=== PATIENT | female | born 1980 | race Caucasian/White ===

== ENCOUNTER 2019-01-06 18:32 | Emergency (ER) | payer BC, OTHER ==
[2019-01-06 19:30] VITALS: BP 116/74
[2019-01-06] MEDS ORDERED: Albuterol/Ipratropium NEB.SOL* Albuterol 2.5 MG/Ipratropium 0.5 MG 3 ML INH ONE (19:46)
--- NOTE | 2019-01-06 19:47 | UC ---
Respiratory Complaint HPI - HPI Summary HPI Summary: Patient has had cold symptoms for the past 2 weeks. She recently traveled to and from [facility]. She states she was sick before she went to [facility]. She has no history of asthma. She thinks she has had some fever. She also states that her right ear feels very plugged and congested. - History of Current Complaint Chief Complaint: UCGeneralIllness Stated Complaint: COUGH/CONGESTION/RT EAR PAIN Time Seen by Provider: 01/06/19 19:42 Hx Obtained From: Patient Hx Last Menstrual Period: 12/20/18 ?: No Onset/Duration: Gradual Onset Timing: Constant Severity Initially: Moderate Severity Currently: Moderate Pain Intensity: 4 Character: Cough: Productive Aggravating Factors: Deep Breaths Alleviating Factors: Nothing Associated Signs And Symptoms: Positive: URI, Nasal Congestion - Ill for 2 weeks , patient just returned from [facility] - Allergies/Home Medications Allergies/Adverse Reactions: Allergies Allergy/AdvReac Type Severity Reaction Status Date / Time No Known Allergies Allergy Verified 01/06/19 19:19 Home Medications: Home Medications Albuterol HFA INHALER* [Ventolin HFA Inhaler*] 1 puff INH Q6H PRN 01/06/19 [ History Confirmed 01/06/19] Budesonide/Formote 160/4.5(NF) [Symbicort 160/4.5 (NF)] 1 puff INH DAILY [History Confirmed 01/06/19] Cetirizine* [ZyrTEC 10 MG TAB*] 10 mg PO DAILY 01/06/19 [History Confirmed 01/06] Ibuprofen TAB* [Advil TAB*] 400 mg PO Q6H PRN 01/06/19 [History Confirmed ] PMH/Surg Hx/FS Hx/Imm Hx Previously Healthy: Yes - Surgical History Surgical History: Yes Surgery Procedure, Year, and Place: --2018 - Social History Alcohol Use: None Substance Use Type: None Smoking Status (MU): Never Smoked Tobacco Review of Systems All Other Systems Reviewed And Are Negative: Yes Constitutional: Positive: Fever, Chills Skin: Positive: Rash - Patient had an itchy rash last week which resolved spontaneously. ENT: Positive: Ear Ache - Date ear pain and feeling of being plugged., Nasal Discharge, Sinus Congestion Respiratory: Positive: Cough - Tight, productive cough. Cardiovascular: Positive: Negative Gastrointestinal: Positive: Negative Genitourinary: Positive: Negative Motor: Positive: Negative Neurovascular: Positive: Negative Musculoskeletal: Positive: Negative Neurological: Positive: Negative Psychological: Positive: Negative Is Patient Immunocompromised?: No Physical Exam Triage Information Reviewed: Yes Appearance: No Pain Distress, Well-Nourished, Ill-Appearing - Mildly ill appearing Vital Signs: Initial Vital Signs Temp 99.1 F 01/06/19 19:22 Pulse 101 01/06/19 19:22 Resp 24 01/06/19 19:22 BP 116/74 01/06/19 19:22 Pulse Ox 97 01/06/19 19:22 Vital Signs Reviewed: Yes Eye Exam: Normal ENT: Positive: Nasal congestion, TM red - Right tympanic membrane with erythema and mild bulging, poor land leavitt., Uvula midline Neck exam: Normal Neck: Positive: Supple, Nontender, No Lymphadenopathy Respiratory: Positive: No respiratory distress, No accessory muscle use, Rhonchi - Scattered wheezing and rhonchi throughout., Wheezing Cardiovascular Exam: Normal Abdominal Exam: Normal Bowel Sounds: Positive: Present Musculoskeletal Exam: Normal Neurological Exam: Normal Psychological Exam: Normal Skin Exam: Normal Respiratory Course/Dx - Course Course Of Treatment: Fairly comfortable here. Following the DuoNeb treatment her wheezing was almost completely gone. She still had a mildly congested cough. I'm going to treat her for the right otitis media. She does have an inhaler at home because she has asthma so she will use 2 puffs every 4-6 hours as needed for any tight cough or wheezing. Follow-up with her primary care provider in the end of the week if she has no improvement but definitely before the antibiotic is completed to check and see if her pneumonia has improved. The x-ray was read by myself and Dr. Monroy and was felt to show pneumonia however I advised her we would call her if the radiologist felt differently. - Differential Dx/Diagnosis Provider Diagnosis: Pneumonia, Otitis media Discharge - Sign-Out/Discharge Documenting (check all that apply): Patient Departure All imaging exams completed and their final reports reviewed: No - Discharge Plan Condition: Fair Disposition: HOME Prescriptions: Amoxicillin/Clavulanate TAB* [Augmentin TAB 875*] 875 mg PO BID 10 Days #20 tab Patient Education Materials: Ear Infection (ED), Community Acquired Pneumonia ( [place]) Referrals: Essence Rasmussen PA [Primary Care Provider] - Additional Instructions: Increase fluids. Take the Augmentin with food. Definite follow-up with your primary care provider before you complete the antibiotic for a recheck or sooner if worsening symptoms. - Billing Disposition and Condition Condition: FAIR Disposition: Home
--- NOTE | 2019-01-07 08:19 | UC ---
- Progress Note Progress Note: chest xray : IMPRESSION: 1. SMALL RIGHT MIDDLE LOBE INFILTRATE. 2. FINDINGS SUGGESTIVE OF COPD. Course/Dx - Diagnoses Provider Diagnoses: Pneumonia, Otitis media Discharge - Sign-Out/Discharge Documenting (check all that apply): Patient Departure All imaging exams completed and their final reports reviewed: Yes - Discharge Plan Condition: Fair Disposition: HOME Prescriptions: Amoxicillin/Clavulanate TAB* [Augmentin TAB 875*] 875 mg PO BID 10 Days #20 tab Patient Education Materials: Ear Infection (ED), Community Acquired Pneumonia ( [place]) Referrals: Essence Rasmussen PA [Primary Care Provider] - Additional Instructions: Increase fluids. Take the Augmentin with food. Definite follow-up with your primary care provider before you complete the antibiotic for a recheck or sooner if worsening symptoms. - Billing Disposition and Condition Condition: FAIR Disposition: Home
== END 2019-01-06 20:23 | disposition home or self-care (01) ==
LOC: UCCORT 18:32
DX: J18.9 Pneumonia, unspecified organism (principal); H66.91 Otitis media, unspecified, right ear
CPT/HCPCS: 71046; 99212; A9270-GY; G0463